=== PATIENT | female | born 1975 | race Two or more races ===

== ENCOUNTER 2017-12-17 11:08 | Outpatient (CLI) | payer OTHER | END 2017-12-17 11:27 | disposition home or self-care (01) | LOC: LAB 11:08 | DX: Z79.4 Long term (current) use of insulin (principal); I10 Essential (primary) hypertension; M10.49 Other secondary gout, multiple sites; Z03.89 Encounter for observation for other suspected diseases and conditions ruled out; Z78.9 Other specified health status ==

== ENCOUNTER 2018-12-12 11:53 | Outpatient (CLI) | payer OTHER | END 2018-12-12 12:02 | disposition home or self-care (01) | LOC: RAD 501 11:53 | DX: R31.0 Gross hematuria (principal) ==

== ENCOUNTER 2019-06-09 13:52 | Emergency (ER) | payer OTHER ==
[~2019-06-09] VITALS: Ht 160 cm; Wt 49.9 kg
[2019-06-09] MEDS ORDERED: HUMALOG100 UNIT/1 (14:19)
[2019-06-09] MEDS ORDERED: LANTUS SOL100 UNIT/1 (14:19)
== END 2019-06-09 18:53 | disposition home or self-care (01) ==
LOC: ER 13:52
DX: K59.09 Other constipation (principal)

== ENCOUNTER 2019-11-07 10:51 | Emergency (ER) | payer OTHER ==
[~2019-11-07] VITALS: Ht 160 cm; Wt 49.9 kg
[~2019-11-07 10:51] MED LIST: HUMALOG100 UNIT/1; LANTUS SOL100 UNIT/1
[2019-11-07] MEDS ORDERED: BACTRIM DS TAB1 EACH PO (15:37)
== END 2019-11-07 16:59 | disposition home or self-care (01) ==
LOC: ER 10:51
DX: N39.0 Urinary tract infection, site not specified (principal); R53.81 Other malaise

== ENCOUNTER 2025-06-08 11:10 | Emergency (ER) | payer OTHER ==
[~2025-06-08] VITALS: Ht 160 cm; Wt 49.9 kg
[~2025-06-08 11:10] MED LIST changes: +BACTRIM DS TAB1 EACH PO
[2025-06-08 11:55] LABS: BASO % 0.9 % (0.1-1.2); EOS # 0.35 (0.04-0.54); EOS % 3.6 % (0.7-7.0); LYMPH # 2.84 (1.18-3.74); LYMPH % 29.0 % (19.3-53.1); MEAN PLATELET VOLUME 10.90 fl (9.4-12.4); MONO # 0.63 (0.24-0.82); MONO % 6.4 % (4.7-12.5); NEUT # 5.84 (1.56-6.13); NEUT % 59.8 % (34.0-71.1); RED CELL DISTRIBUTION WIDTH 13.8 % (11.6-14.4)
[2025-06-08 13:15] LABS: ERYTHROCYTE SEDIMENTATION RATE 70 mm/hr (0-30)
[2025-06-08] MEDS ORDERED: ELIQUIS5 MG PO (14:35)
== END 2025-06-08 14:41 | disposition home or self-care (01) ==
LOC: ER 11:10
PROVIDERS: General Practice
DX: I82.409 Acute embolism and thrombosis of unspecified deep veins of unspecified lower extremity (principal); R22.41 Localized swelling, mass and lump, right lower limb; E11.9 Type 2 diabetes mellitus without complications; Z79.4 Long term (current) use of insulin; Z91.018 Allergy to other foods

== ENCOUNTER 2025-07-21 10:55 | Emergency (ER) | payer OTHER ==
[~2025-07-21] VITALS: Ht 160 cm; Wt 49.9 kg
[~2025-07-21 10:55] MED LIST changes: +ELIQUIS5 MG PO
[2025-07-21] MEDS ORDERED: ATACAND4 MG (11:04)
[2025-07-21] MEDS ORDERED: DEXAMETHASONE SODIUM PHOSPHATE 4 MG/ML VIAL IM STA (12:18)
[2025-07-21] MEDS ORDERED: KETOROLAC TROMETHAMINE 30 MG VIAL IM STA (12:19)
[2025-07-21] MEDS ORDERED: KETOROLAC TROMETHAMINE 30 MG VIAL ONE (12:20)
[2025-07-21] MEDS ORDERED: DEXAMETHASONE SODIUM PHOSPHATE 4 MG/ML VIAL ONE (12:20)
[2025-07-21 12:38] LABS: BASO % 1.1 % (0.1-1.2); EOS # 0.24 (0.04-0.54); EOS % 2.6 % (0.7-7.0); LYMPH # 2.73 (1.18-3.74); LYMPH % 29.8 % (19.3-53.1); MEAN PLATELET VOLUME 11.00 fl (9.4-12.4); MONO # 0.62 (0.24-0.82); MONO % 6.8 % (4.7-12.5); NEUT # 5.45 (1.56-6.13); NEUT % 59.5 % (34.0-71.1); RED CELL DISTRIBUTION WIDTH 12.0 % (11.6-14.4)
[2025-07-21 13:06] LABS: BUN CREA RATIO 26.0 (7.0-25.0); CREATININE SERUM 0.91 mg/dL (0.55-1.02); GFR 65.17; OSMOLALITY SERUM 296.0 MOSM/KG (275-295)
[2025-07-21 13:07] LABS: GLUCOSE FASTING 265.0 mg/dL (65-100)
[2025-07-21 13:52] LABS: URINE APPEARANCE Turbid; URINE BILIRRUBIN Negative (NEGATIVE); URINE BLOOD Small; URINE COLOR Yellow; URINE KETONE Negative (NEGATIVE); URINE LEUKOCYTE Large; URINE NITRATE Positive; URINE PROTEIN Trace (NEGATIVE); URINE UROBILINOGEN 0.2 E.U./dl
[2025-07-21 13:57] LABS: URINE EPITHELIAL CELLS 182.3 uL (0.0-38.8); URINE RBC 13.7 uL (0.0-20.8); URINE WBC 3833.8 uL (0.0-23.2)
[2025-07-21 14:28] LABS: URINE GLUCOSE 250 MG/DL (NEGATIVE)
[2025-07-21 14:29] LABS: URINE BACTERIA >= 9821.5 uL (0.0-1933); URINE CAST 0.14 uL (0.0-1.40)
[2025-07-21] MEDS ORDERED: TAMS0.4C PO (15:34)
[2025-07-21] MEDS ORDERED: NAPROXEN500 MG PO (15:34)
[2025-07-21] MEDS ORDERED: CIPRO500 MG PO (15:34)
== END 2025-07-21 15:54 | disposition home or self-care (01) ==
LOC: ER 10:55
PROVIDERS: General Practice
DX: N39.0 Urinary tract infection, site not specified (principal); N23 Unspecified renal colic; M54.50 Low back pain, unspecified; E11.9 Type 2 diabetes mellitus without complications; Z79.4 Long term (current) use of insulin; Z91.018 Allergy to other foods